=== PATIENT | male | born 1960 | race Caucasian/White ===

== ENCOUNTER → 2020-06-17 10:36 | Outpatient (BNVA) | payer BC, SELFPAY | PROVIDERS: Family Provider Family Medicine; PCP Family Medicine; Visit Provider Nurse Practitioner Family | DX: Z20.828 Contact with and (suspected) exposure to other viral communicable diseases (principal); J06.9 Acute upper respiratory infection, unspecified; R43.0 Anosmia | CPT/HCPCS: 87635 ==

== ENCOUNTER → 2020-11-06 15:52 | Outpatient (BNVA) | payer BC, SELFPAY | PROVIDERS: Family Provider Family Medicine; PCP Nurse Practitioner Family; Visit Provider Internal Medicine Cardiovascular Disease | DX: I25.10 Atherosclerotic heart disease of native coronary artery without angina pectoris (principal) | CPT/HCPCS: 80061; 84450; 84460 ==

== ENCOUNTER 2021-10-06 10:29 | Outpatient (CLI) | payer BC, SELFPAY ==
--- NOTE | 2021-10-06 10:56 | XRR_ITS ---
PROCEDURE INFORMATION: Exam: XR Left Shoulder Exam date and time: 10/06/2021 10:56 AM Age: 61 years old Clinical indication: Left; Patient HX: Lt shoulder pain for 1 year, pulling injury; Additional info: Pain in L shoulder TECHNIQUE: Imaging protocol: XR Left shoulder. Views: 2 or more views. COMPARISON: No relevant prior studies available. FINDINGS: Bones/joints: Osseous structures are intact. Negative for fracture or dislocation. Joint spaces are preserved. Soft tissues: Normal. XR/XR shoulder LT min 2V* [id number] IMPRESSION: Unremarkable radiographs of the left shoulder.
== END 2021-10-06 10:30 | disposition home or self-care (01) ==
PROVIDERS: PCP Nurse Practitioner Family; Visit Provider Internal Medicine
DX: M25.512 Pain in left shoulder (principal)
CPT/HCPCS: 73030

== ENCOUNTER 2022-04-20 13:10 | Outpatient (CLI) | payer OTHER, SELFPAY ==
--- NOTE | 2022-04-20 13:20 | MR_ITS ---
WS: [id number] MRI LEFT SHOULDER HISTORY: PAIN IN LEFT SHOULDER COMPARISON: 10/06/2021 radiograph TECHNIQUE: Multiplanar sequences of the shoulder joint are submitted. Mild AC joint arthritis. Joint space narrowing with mild bony and soft tissue hypertrophy. Slight enc roachment upon the supraspinatus muscle. There is a very small amount of fluid in the subacromial and subdeltoid bursa. Osteophyte from the distal undersurface of the acromion with mild subacromial impi ngement. No os acromion. Biceps tendon in good position. Distal supraspinatus tendon tear involves the articular surface with fluid extending along the distal tendon. There is also adjacent fluid along the bursal surface of the tendon. No retraction of the te ndon and no muscle atrophy or edema. Subscapularis and infraspinatus tendons are intact. Intrasubstance degeneration in the anterior superior labrum. Suspicious for very small tear involving the superior labrum. Increase fluid in the subscapularis recess. MR/MR shoulder LT wo con* [id number] IMPRESSION: 1. Articular surface tear distal supraspinatus tendon with fluid extending dorothy ng the tendon sheath. No retraction or edema or muscle atrophy of the supraspin atus. 2. Mild AC joint arthritis. 3. Mild subacromial impingement upon the supraspinatus secondary to an osteoph yte. 4. Intrasubstance degeneration of the superior labrum and focal tear suspected .
== END 2022-04-20 13:11 | disposition home or self-care (01) ==
PROVIDERS: PCP Nurse Practitioner Family; Visit Provider Internal Medicine
DX: M75.102 Unspecified rotator cuff tear or rupture of left shoulder, not specified as traumatic (principal); M13.812 Other specified arthritis, left shoulder
CPT/HCPCS: 73221

== ENCOUNTER → 2024-04-14 08:49 | Outpatient (BNVA) | payer OTHER, SELFPAY | PROVIDERS: PCP Nurse Practitioner Family; Visit Provider Physician Assistant | DX: M75.42 Impingement syndrome of left shoulder; M25.512 Pain in left shoulder | CPT/HCPCS: 73030 ==

== ENCOUNTER 2024-05-01 08:52 | Outpatient (CLI) | payer OTHER, SELFPAY ==
--- NOTE | 2024-05-01 09:04 | USCV_ITS ---
Grace Jimmie Age: 63 Gender: M : 1960 Exam Date: 05/01/2024 09:06 Ordering Phys: Lurdes Monterroso MD Technologist: YASMINE Exam Location: [facility] – [place] Indication: CAD Risk Factors: Previous Vascular Surgery: Right Brachial BP: / Left Brachial BP: / Right Left Velocity (cm/s) Spectral Plaque Velocity (cm/s) Spectral Plaque Syst/Diast Broadening Syst/Diast Broadening 85.00/ 15.40 Prox CCA 99.70 / 21.00 100.50/21.30 Mid CCA 102.10/ 22.70 61.50/ 12.70 Distal CCA 71.20 / 19.10 51.70/ 15.60 Prox ICA 51.80 / 18.10 62.60/ 22.80 Mid ICA 51.60 / 22.00 52.10/ 20.50 Distal ICA 46.30 / 16.80 73.40 ECA 76.60 1.00 ICA/CCA 0.70 Antegrade Vertebral Antegrade 30.90/ 9.50 cm/s 36.80/ 11.50 cm/s Tri Subclavian Tri 54.40 66.70 FINDINGS Comparison: none available. No significant elevation of systolic or diastolic velocities. Waveforms are normal. Minimal carotid atherosclerosis. CONCLUSIONS Bilateral ICA stenosis less than 50%. Minimal carotid atherosclerosis. Dr. Maia Wallace DO (Electronically Signed) Final Date: 01 May 2024 14:17 S
== END 2024-05-01 08:53 | disposition home or self-care (01) ==
PROVIDERS: PCP Nurse Practitioner Family; Visit Provider Internal Medicine
DX: I77.9 Disorder of arteries and arterioles, unspecified (principal); I67.2 Cerebral atherosclerosis
CPT/HCPCS: 93880

== ENCOUNTER 2024-07-06 12:50 | Outpatient (CLI) | payer OTHER, SELFPAY ==
--- NOTE | 2024-07-06 13:00 | MR_ITS ---
WS: [id number] MRI LEFT SHOULDER HISTORY: M75.42 - Impingement syndrome of left shoulder COMPARISON: 04/20/2022, shoulder radiograph 04/14/2024 TECHNIQUE: Multiplanar sequences of the shoulder joint are submitted. Moderate AC joint arthropathy. Small osteophytes at the distal clavicle with narrowing of the AC join t and synovial hypertrophy. Osteophyte impingement upon the supraspinatus. Small amount of fluid in t he subacromial space. Moderate subacromial impingement. Enthesopathy along the undersurface of the di stal acromion measures 4 x 8 mm with moderate encroachment upon the supraspinatus tendon. No os acrom ion. Normal position of the biceps tendon. No rotator cuff muscle atrophy or edema. Persistent increased fluid signal in the supraspinatus tendo n directly over the humeral head at the level of the subacromial impingement. Cannot definitely ident radha a bursal or articular surface extension of this tear. This may be an intrasubstance tear. There i s additional fluid along the bursal surface of the tendon. Infraspinatus and subscapularis tendons ar e normal. No tears. Fraying along the cartilaginous surface of the glenoid. Intermediate signal throu ghout the labrum. No definite tears are identified. MR/MR shoulder LT wo con* [id number] IMPRESSION: 1. Moderate AC joint arthropathy with osteophytes encroaching upon the suprasp inatus myotendinous insertion. 2. Moderate subacromial impingement by an enthesopathy along the distal unders urface of the acromion. 3. Abnormal signal in the distal supraspinatus tendon just distal to the subac romial impingement. This may be an intrasubstance tear as extension to the burs al or articular surface is not identified. There is adjacent bursal fluid also indicating an inflammatory process. 4. Cartilaginous fraying along the glenoid surface.
== END 2024-07-06 12:51 | disposition home or self-care (01) ==
LOC: RAD 12:52
PROVIDERS: PCP Nurse Practitioner Family; Visit Provider Physician Assistant
DX: M19.012 Primary osteoarthritis, left shoulder (principal); M75.42 Impingement syndrome of left shoulder; M25.712 Osteophyte, left shoulder; M24.112 Other articular cartilage disorders, left shoulder
CPT/HCPCS: 73221